=== PATIENT | male | born 1950 | race Caucasian/White ===

== ENCOUNTER 2016-09-05 09:07 | Day surgery (SDC) | payer MEDICARE, OTHER ==
[~2016-09-05] VITALS: Ht 167.6 cm; Wt 93.0 kg
== END 2016-09-05 11:25 | disposition short-term general hospital (02) ==
LOC: SURGOP 09:07
PROC: 0DJD8ZZ Inspection of Lower Intestinal Tract, Via Natural or Artificial Opening Endoscopic (ICD-10-PCS; principal; 2016-09-05)
DX: Z12.11 Encounter for screening for malignant neoplasm of colon (principal); Z87.19 Personal history of other diseases of the digestive system; Z98.890 Other specified postprocedural states; Z79.899 Other long term (current) drug therapy; I10 Essential (primary) hypertension; K21.9 Gastro-esophageal reflux disease without esophagitis; Z80.0 Family history of malignant neoplasm of digestive organs; Z83.71 Family history of colonic polyps
CPT/HCPCS: 00810; G0105